=== PATIENT | male | born 1995 | race Caucasian/White ===

== ENCOUNTER 2019-06-08 23:30 | Emergency (ER) | payer OTHER ==
[~2019-06-08] VITALS: Ht 182.9 cm; Wt 81.2 kg
[~2019-06-08 23:30] MED LIST: TUSSI PRES-B L120 M1 PO
[2019-06-09] MEDS ORDERED: KETO10TA2 PO (01:25)
== END 2019-06-09 01:31 | disposition home or self-care (01) ==
LOC: ER 23:30
DX: S60.011A Contusion of right thumb without damage to nail, initial encounter (principal); W21.05XA Struck by basketball, initial encounter; Y93.89 Activity, other specified; Y92.89 Other specified places as the place of occurrence of the external cause; Y99.8 Other external cause status

== ENCOUNTER 2019-07-01 23:28 | Emergency (ER) | payer OTHER ==
[~2019-07-01] VITALS: Ht 182.9 cm; Wt 88.0 kg
[~2019-07-01 23:28] MED LIST changes: +KETO10TA2 PO
[2019-07-02] MEDS ORDERED: AMOX-CLAV 875-1 EACH PO (02:55)
[2019-07-02] MEDS ORDERED: KETO10TA2 PO (02:55)
[2019-07-02] MEDS ORDERED: INTESTINEX680 M1 PO (02:55)
== END 2019-07-02 03:06 | disposition home or self-care (01) ==
LOC: ER 23:28 → CPU-OBS 23:29 → ER 07-02 03:06
DX: L02.416 Cutaneous abscess of left lower limb (principal)

== ENCOUNTER 2019-09-05 17:52 | Emergency (ER) | payer OTHER ==
[~2019-09-05] VITALS: Ht 182.9 cm; Wt 84.4 kg
[~2019-09-05 17:52] MED LIST changes: +AMOX-CLAV 875-1 EACH PO; +INTESTINEX680 M1 PO
== END 2019-09-05 21:21 | disposition home or self-care (01) ==
LOC: ER 17:52
DX: J32.0 Chronic maxillary sinusitis (principal); J06.9 Acute upper respiratory infection, unspecified

== ENCOUNTER 2019-10-28 22:24 | Emergency (ER) | payer OTHER ==
[~2019-10-28] VITALS: Ht 182.9 cm; Wt 87.1 kg
[2019-10-29] MEDS ORDERED: DICLOFENAC SODI75 MG PO (02:02)
== END 2019-10-29 02:22 | disposition home or self-care (01) ==
LOC: ER 22:24
DX: S93.492A Sprain of other ligament of left ankle, initial encounter (principal); W10.8XXA Fall (on) (from) other stairs and steps, initial encounter; Y93.01 Activity, walking, marching and hiking; Y92.098 Other place in other non-institutional residence as the place of occurrence of the external cause; Y99.8 Other external cause status

== ENCOUNTER 2020-04-21 13:34 | Emergency (ER) | payer OTHER ==
[~2020-04-21] VITALS: Ht 182.9 cm; Wt 81.2 kg
[~2020-04-21 13:34] MED LIST changes: +DICLOFENAC SODI75 MG PO
== END 2020-04-21 17:10 | disposition home or self-care (01) ==
LOC: ER 13:34
DX: J32.8 Other chronic sinusitis (principal)

== ENCOUNTER 2020-05-28 17:37 | Emergency (ER) | payer OTHER ==
[~2020-05-28] VITALS: Ht 182.9 cm; Wt 79.8 kg
== END 2020-05-28 20:06 | disposition home or self-care (01) ==
LOC: ER 17:37
DX: S93.691A Other sprain of right foot, initial encounter (principal); X50.0XXA Overexertion from strenuous movement or load, initial encounter; Y93.F9 Activity, other caregiving; Y92.89 Other specified places as the place of occurrence of the external cause; Y99.8 Other external cause status

== ENCOUNTER 2020-06-26 10:52 | Emergency (ER) | payer OTHER ==
[~2020-06-26] VITALS: Ht 185.4 cm; Wt 81.6 kg
[2020-06-26] MEDS ORDERED: ZITHROMAX500 MG PO (14:10)
[2020-06-26] MEDS ORDERED: PEPCID AC20 MG PO (14:10)
== END 2020-06-26 14:40 | disposition home or self-care (01) ==
LOC: ER 10:52 → CPU-OBS 11:05 → ER 14:40
DX: R10.13 Epigastric pain (principal); R11.2 Nausea with vomiting, unspecified; B96.0 Mycoplasma pneumoniae [M. pneumoniae] as the cause of diseases classified elsewhere; T40.4X5A Adverse effect of other synthetic narcotics, initial encounter; Y92.89 Other specified places as the place of occurrence of the external cause
CPT/HCPCS: G0378; G0379; 93005